=== PATIENT | male | born 1960 | race Caucasian/White ===

== ENCOUNTER → 2020-12-22 10:09 | Outpatient (CLI) | payer OTHER, SELFPAY ==
[2020-12-23 20:40] LABS: PSA, Free 0.64 ng/mL; PSA, Free % 15.6 % (.); PSA, Total Ultrasensitive 4.1 ng/mL (0.0-4.0)
== END ==
PROVIDERS: PCP Nurse Practitioner Primary Care; Referring Provider Nurse Practitioner Adult Health; Visit Provider Nurse Practitioner Adult Health
DX: R97.20 Elevated prostate specific antigen [PSA] (principal)
CPT/HCPCS: 36415; 84153; 84154

== ENCOUNTER → 2021-07-24 | Outpatient (CLI) | payer OTHER, SELFPAY ==
--- NOTE | 2021-07-24 08:00 | PROSBIL_PTH ---
PATIENT: MILAD SIEGEL LOC: [facility] U#:[id number] AGE/SX: 61/M ROOM: RE07/24/[address]: Dr. Kevin Carreon MD : 1960 BED: DIS: 07/24/2021 SPEC #: [id number] RECD: 07/24/21 16:29 STATUS: KAILYN HARVEYDarya #: [id number] JAH: 07/24/21 08:[address]: Kevin Carreon DEPT: SURGICAL PATHOLOGY RECD BY: Ruthy Null ENTERED: 07/26/21 09:28 SP TYPE: PROST BX MIGUEL ANGEL DR: Reilly Orozco, VICKY Tissues: A - PROSTATE RIGHT B - PROSTATE RIGHT C - PROSTATE RIGHT D - PROSTATE LEFT E - PROSTATE LEFT F - PROSTATE LEFT Procedures: PROSTATE BX HEADER OPERATION: Prostate biopsy PRE-OP DIAGNOSIS: R97.20 TISSUE SUBMITTED: A - Right apex, B - Right mid, C - Right base, D - Left apex, E - Left mid, F - Left base MICROSCOPIC DIAGNOSIS A. Right prostate, apex, core biopsy: Prostatic tissue, negative for malignancy. B. Right prostate, mid, core biopsy: Prostatic tissue, negative for malignancy. Focal mild acute and chronic inflammation. C. Right prostate, base, core biopsy: Prostatic tissue, negative for malignancy. D. Left prostate, apex, core biopsy: Prostatic tissue, negative for malignancy. E. Left prostate, mid, core biopsy: Prostatic tissue, negative for malignancy. F. Left prostate, base, core biopsy: Prostatic tissue, negative for malignancy. SJ:saul 07/27/2021 MICROSCOPIC DESCRIPTION Slides are reviewed. GROSS DESCRIPTION A - Received is one container designated prostate, right apex. The specimen consists of two elongated fragments of light bower-white soft tissue each measuring 1.2 cm in length and 0.1 cm in diameter. The specimen is totally submitted in one cassette. B - Received is one container designated prostate, right mid. The specimen consists of two elongated fragments of light bower-white soft tissue measuring 0.8 and 1.5 cm in length and 0.1 cm in diameter. The specimen is totally submitted in one cassette. C - Received is one container designated prostate, right base. The specimen consists of one elongated fragment of light bower-white soft tissue measuring 1.5 cm in length and 0.1 cm in diameter. The specimen is totally submitted in one cassette. D - Received is one container designated prostate, left apex. The specimen consists of two elongated fragments of light bower-white soft tissue each measuring 1 cm in length and 0.1 cm in diameter. The specimen is totally submitted in one cassette. E - Received is one container designated prostate, left mid. The specimen consists of two elongated fragments of light bower-white soft tissue each measuring 1.5 cm in length and 0.1 cm in diameter. The specimen is totally submitted in one cassette. F - Received is one container designated prostate, left base. The specimen consists of two elongated fragments of light bower-white soft tissue measuring 0.5 and 1 cm in length and 0.1 cm in diameter. The specimen is totally submitted in one cassette. / SJ:rg 07/26/21 TC:3 CPT: 55301 x6
== END | disposition home or self-care (01) ==
LOC: LABSPEC 16:37
PROVIDERS: PCP Nurse Practitioner Primary Care; Referring Provider Urology; Visit Provider Urology
DX: R97.20 Elevated prostate specific antigen [PSA] (principal)
CPT/HCPCS: 88305; G0416

== ENCOUNTER 2022-02-20 10:15 | Outpatient (CLI) | payer OTHER, SELFPAY ==
--- NOTE | 2022-02-20 10:26 | MRI_ITS ---
MR Pelvis WO/W Contrast 02/20/2022 10:44 AM COMPARISON: None CLINICAL HISTORY: 61-year-old man with history of prostate cancer and now elevated PSA TECHNIQUE: Standard prostate MRI protocol was used before and after administration of 15 cc of IV Dotarem. FINDINGS: Prostate volume: 56 cc PSA density: ONLY B4 TREATMENT ng/ml2 Length of membranous urethra: 13 mm Post-biopsy hemorrhage: None Multiparametric MR evaluation: Heterogeneous appearance of the central gland is consistent with benign prostatic hyperplasia. Lesion 1: LOCATION - 0.8 x 0.9 x 0.8 cm T2 hypointense round lesion in the right anterior transitional zone at mid gland. It is mildly bright on DWI and dark on ADC. (Image 11, series 3). T2 - 4 DWI - 3 DCE - inconclusive Overall PI-RADS v2 score = 4 Lesion 2: LOCATION - 1.6 x 1.1 x 2 cm ill-defined T2 hypointense region in the right anterior transitional zone near the base gland. It is mildly bright on DWI and dark on ADC. (Image 11, series 3). T2 - 3 DWI - 3 DCE - inconclusive Overall PI-RADS v2 score = 3 Lesion 3: LOCATION - 8 x 6 x 6 mm well-circumscribed T2 hypointense lesion in the medial left transitional zone between mid gland and apex. It is mildly bright on delayed DWI and dark on ADC. (Image 12, series 4). T2 - 4 DWI - 3 DCE - inconclusive Overall PI-RADS v2 score = 4 Capsular margin and neurovascular bundle: No evidence of extracapsular extension. Seminal vesicles: No evidence of seminal vesicle involvement. Lymph nodes: No lymphadenopathy in the field of view. Bones: No suspicious lesions in the field of view. MRI/Pelvis W/WO Contrast IMPRESSION: -9 mm PIRADS 4 lesion in the right anterior TZ at mid gland. -2 cm PIRADS 3 lesion in the right anterior TZ near base gland. -8 mm PIRADS 4 lesion in the medial left TZ between mid gland and apex. - No evidence of macroscopic extracapsular extension. No evidence of seminal vesicle invasion. - No lymphadenopathy. No suspicious bone lesions. -Benign prostatic hyperplasia. Electronically Signed: Lexa Can MD at 0:24 EDT ,
[2022-02-20 10:41] LABS: CREATININE FINGERSTICK < 0.6 mg/dL (0.70-1.30); EGFR FINGERSTICK > 60.0000 mL/min (>60)
== END 2022-02-20 23:59 | disposition home or self-care (01) ==
PROVIDERS: PCP Nurse Practitioner Primary Care; Visit Provider Urology
DX: R97.20 Elevated prostate specific antigen [PSA] (principal); Z85.46 Personal history of malignant neoplasm of prostate
CPT/HCPCS: 72197; A9575

== ENCOUNTER 2022-03-01 17:08 | Outpatient (CLI) | payer OTHER, SELFPAY ==
--- NOTE | 2022-03-01 | PROSBIL_PTH ---
PATIENT: MILAD SIEGEL [facility] U#:[id number] AGE/SX: 61/M ROOM: RE03/01/[address]: Dr. Kevin Carreon MD : 1960 BED: DIS: 03/01/2022 SPEC #: [id number] RECD: 03/01/22 17:07 STATUS: KAILYN PUTNAM #: [id number] JAH: 03/01/22 00:[address]: Kevin Carreon DEPT: SURGICAL PATHOLOGY RECD BY: Floyd Sanchez ENTERED: 03/02/22 08:45 SP TYPE: PROST BX MIGUEL ANGEL DR: Reilly Orozco, TIARRA-C Tissues: A - PROSTATE RIGHT B - PROSTATE RIGHT C - PROSTATE LEFT Procedures: PROSTATE BX HEADER OPERATION: Prostate biopsy PRE-OP DIAGNOSIS: R97.20 TISSUE SUBMITTED: A - Right prostate, trans mid, B - Right prostate, trans base, C - Left prostate, trans zone MICROSCOPIC DIAGNOSIS A. Right prostate, trans mid, core biopsy: Prostatic tissue, negative for malignancy. Focal mild acute and chronic inflammation. B. Right prostate, trans base, core biopsy: Prostatic tissue, negative for malignancy. Focal mild chronic inflammation. C. Left prostate, trans zone, core biopsy: Prostatic tissue, negative for malignancy. Focal mild acute and chronic inflammation. SJ:saul 03/05/2022 COMMENT Please make reference to previous specimen ([id number]) right prostate, apex, mid and base and left prostate, apex, mid and base with diagnosis of ?prostatic tissue, negative for malignancy.? MICROSCOPIC DESCRIPTION Slides are reviewed. GROSS DESCRIPTION A - Received in fixative is one container labeled with the patient's name and designated right trans mid. The specimen consists of three elongated fragments of light bower-white soft tissue each measuring 1.7 cm in length and 0.1 cm in diameter. A small fragment of bower soft tissue is also noted measuring 0.4 cm in length and 0.1 cm in diameter. The specimen is totally submitted in one cassette. B - Received in fixative is one container labeled with the patient's name and designated right trans base. The specimen consists of three elongated fragments of light bower-white soft tissue each measuring 1.7 cm in length and 0.1 cm in diameter. The specimen is totally submitted in one cassette. C - Received in fixative is one container labeled with the patient's name and designated left trans zone. The specimen consists of three elongated fragments of light bower-white soft tissue measuring 1 to 1.5 cm in length and 0.1 cm in diameter. The specimen is totally submitted in one cassette. / SJ:rg 03/02/2022 TC:3 CPT: 95901 x3
== END 2022-03-01 23:59 | disposition home or self-care (01) ==
PROVIDERS: PCP Nurse Practitioner Primary Care; Visit Provider Urology
DX: R97.20 Elevated prostate specific antigen [PSA] (principal)
CPT/HCPCS: 88305; G0416